=== PATIENT | female | born 1945 | race Caucasian/White ===

== ENCOUNTER 2016-07-15 17:36 | Emergency (ER) | payer OTHER ==
[2016-07-16] MEDS ORDERED: CEFTRIAXONE 1 GM VIAL ONE (00:25)
[2016-07-16] MEDS ORDERED: SODIUM CHLORIDE 0.9% 100 ML IV ONE (00:26)
[2016-07-16] MEDS ORDERED: POTASSIUM CHLOR 10MEQ -ED ONLY 50 ML IV ONE ×2 (00:58→02:27)
[2016-07-16] MEDS ORDERED: SODIUM CHLORIDE 0.9% 1,000 ML ONE (01:34)
[2016-07-16] MEDS ORDERED: KCL CR 20 MEQ TAB PO ONE (04:11)
== END 2016-07-16 04:39 | disposition home or self-care (01) ==
LOC: ER 17:36 → EEVIPCON 17:36 → ER 07-16 04:39
CPT/HCPCS: 36415 ×2; 74176 ×2; 80053 ×2; 81001 ×2; 82274 ×2; 83690 ×2; 85025 ×2; 87077 ×2; 87088 ×2; 87186 ×2; 96361 ×2; 96365 ×2; 96366 ×2; 96367 ×2; 99284; J0696